=== PATIENT | male | born 1985 | race Caucasian/White ===

== ENCOUNTER 2019-02-22 19:16 | Emergency (ER) | payer MEDICAID ==
[2019-02-22] MEDS ORDERED: Lidocaine 1% 30 ML SDV ONE (19:45)
[2019-02-22] MEDS ORDERED: Lidocaine 2% with EPINEPHrine 1:200,000 20 ML SDV ONE (19:46)
[2019-02-22 20:18] LABS: ANION GAP 13.8; CHLORIDE,CL 101 mmol/L (101-111); SODIUM,NA 136 mmol/L (135-145)
[2019-02-22] MEDS ORDERED: Lidocaine 1% 10 ML MDV INJECT ONE (20:30)
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
== END 2019-02-22 20:55 | disposition home or self-care (01) ==
LOC: DL.ED 19:16
DX: S01.21XA Laceration without foreign body of nose, initial encounter (principal); E66.9 Obesity, unspecified; Z91.09 Other allergy status, other than to drugs and biological substances; Z68.30 Body mass index [BMI] 30.0-30.9, adult; V49.50XA Passenger injured in collision with unspecified motor vehicles in traffic accident, initial encounter; Y92.410 Unspecified street and highway as the place of occurrence of the external cause
CPT/HCPCS: 12015; 36415; 80053; 80320; 85025; 99284; J2001; G0480

== ENCOUNTER 2019-02-28 17:31 | Inpatient (IN) | payer OTHER, MEDICAID ==
[2019-02-28] MEDS ORDERED: Sodium Chloride 0.9% 10 ML Syringe FLUSH PRN (18:27)
[2019-02-28] MEDS ORDERED: Sodium Chloride 0.9% 1,000 ML IV ONE (18:29)
[2019-02-28] MEDS ORDERED: Albuterol/Ipratropium 3.0-0.5 MG/3 ML Neb Soln NEB ONE (18:29)
[2019-02-28] MEDS ORDERED: Ketorolac 30 MG/ML SDV IVPUSH ONE (18:29)
[2019-02-28] MEDS ORDERED: Piperacillin/Tazobactam 4.5 GM in Sodium Chloride 0.9% 100 ML IV ONE (18:30)
[2019-02-28] MEDS ORDERED: Ondansetron 4 MG/2 ML SDV IV ONE (19:03)
[2019-02-28] MEDS ORDERED: HYDROmorphone 1 MG/ML Syringe IVPUSH ONE (19:03)
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
[2019-02-28] MEDS ORDERED: Ondansetron 4 MG Tab.DIS PO PRN (19:10)
[2019-02-28] MEDS ORDERED: Docusate Sodium 100 MG Cap PO PRN (19:10)
[2019-02-28] MEDS ORDERED: Albuterol 0.083% 2.5 MG/3 ML Neb Soln NEB PRN (19:10)
[2019-02-28] MEDS ORDERED: Zolpidem 5 MG Tab PO PRN (19:10)
[2019-02-28] MEDS ORDERED: Acetaminophen/HYDROcodone 325-10 MG Tab PO PRN (19:10)
[2019-02-28 19:14] LABS: ANION GAP 14.7; CHLORIDE,CL 104 mmol/L (101-111); SODIUM,NA 137 mmol/L (135-145)
[2019-02-28] MEDS ORDERED: Azithromycin 500 MG in Sodium Chloride 0.9% 250 ML IV SCH (19:15)
[2019-02-28] MEDS ORDERED: Azithromycin 500 MG Vial ONE (20:06)
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
[2019-02-28] MEDS: Heparin Sodium 5,000 Units/ML Vial SUBCUT SCH (21:38)
[2019-03-01] MEDS: Acetaminophen 325 MG Tab PO PRN ×2 (02:50→23:00)
[2019-03-01] MEDS ORDERED: Piperacillin/Tazobactam 3.375 GM in Sodium Chloride 0.9% 100 ML IV SCH (03:00)
[2019-03-01] MEDS: Heparin Sodium 5,000 Units/ML Vial SUBCUT SCH ×3 (05:34→22:19)
[2019-03-01 06:53] LABS: ANION GAP 12.8; CHLORIDE,CL 106 mmol/L (101-111); SODIUM,NA 139 mmol/L (135-145)
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
[2019-03-01] MEDS: Sodium Chloride 0.9% 10 ML Syringe FLUSH PRN ×4 (14:17→23:09)
[2019-03-01] MEDS: Piperacillin/Tazobactam 3.375 GM in Sodium Chloride 0.9% 100 ML IV SCH ×2 (14:18→22:35)
[2019-03-01] MEDS ORDERED: Albuterol/Ipratropium 3.0-0.5 MG/3 ML Neb Soln NEB PRN (16:43)
[2019-03-01] MEDS ORDERED: Azithromycin 500 MG in Sodium Chloride 0.9% 250 ML IV SCH (21:00)
[2019-03-02] MEDS: Sodium Chloride 0.9% 10 ML Syringe FLUSH PRN (05:42)
[2019-03-02] MEDS: Piperacillin/Tazobactam 3.375 GM in Sodium Chloride 0.9% 100 ML IV SCH (05:43)
[2019-03-02] MEDS: Heparin Sodium 5,000 Units/ML Vial SUBCUT SCH (05:48)
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
[2019-03-02] MEDS ORDERED: Pneumococcal Polyvalent-23 Vaccine 0.5 ML SDV IM ONE (13:13)
[2019-03-02 13:44] VITALS: BP 114/68; PULSE 81
== END 2019-03-02 13:50 | disposition home or self-care (01) | DRG 195 ==
LOC: DL.ED 17:31 → DL.MS 19:11
PROVIDERS: ADMIT Internal Medicine; ATTEND Internal Medicine
DX: J18.1 Lobar pneumonia, unspecified organism (principal); S01.21XA Laceration without foreign body of nose, initial encounter; K59.09 Other constipation; E66.9 Obesity, unspecified; F17.200 Nicotine dependence, unspecified, uncomplicated; Z91.09 Other allergy status, other than to drugs and biological substances; S22.42XD Multiple fractures of ribs, left side, subsequent encounter for fracture with routine healing; S02.401D Maxillary fracture, unspecified side, subsequent encounter for fracture with routine healing; V89.2XXA Person injured in unspecified motor-vehicle accident, traffic, initial encounter
CPT/HCPCS: 36415; 71046; 80048; 80053; 80305-QW; 81001; 83605; 85025; 85027; 87040; 87070; 87205; 94640; 96365; 96375; 99284-25; A9270-GY; G0480; J0456; J1170; J1644; J1885; J2543; J7030; J7050; J7620-GY

== ENCOUNTER 2020-08-26 21:18 | Emergency (ER) | payer MEDICAID, OTHER | END 2020-08-26 21:45 | disposition left against medical advice (07) | LOC: DL.ED 21:18 | DX: Z53.21 Procedure and treatment not carried out due to patient leaving prior to being seen by health care provider (principal) ==

== ENCOUNTER 2020-09-07 15:48 | Emergency (ER) | payer MEDICAID ==
[2020-09-07 16:21] VITALS: BP 115/99; PULSE 84
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
== END 2020-09-07 17:03 | disposition home or self-care (01) ==
LOC: DL.ED 15:48
DX: S01.81XA Laceration without foreign body of other part of head, initial encounter (principal); E66.9 Obesity, unspecified; Z91.048 Other nonmedicinal substance allergy status; Z68.32 Body mass index [BMI] 32.0-32.9, adult; W22.8XXA Striking against or struck by other objects, initial encounter
CPT/HCPCS: 12001; 99282; 99282-25

== ENCOUNTER 2020-09-21 10:58 | Emergency (ER) | payer MEDICAID ==
--- NOTE | 2020-09-21 11:08 | EDM.PDOC ---
ED HPI GENERAL MEDICAL PROBLEM - General Chief Complaint: Wound Recheck Stated Complaint: NEEDS MARIA REMOVED Time Seen by Provider: 09/21/20 11:04 Source of Information: Reports: Patient, Old Records, RN, RN Notes Reviewed History Limitations: Reports: No Limitations - History of Present Illness INITIAL COMMENTS - FREE TEXT/NARRATIVE: Pt presents to ER with request for staple removal from scalp. Pt was seen here on 09/07/20 for a laceration. Denies any wound infection or other concerns. Onset Date: 09/07/20 Location: Reports: Head Severity: Mild Improves with: Reports: None Worsens with: Reports: None Associated Symptoms: Reports: No Other Symptoms - Related Data Allergies Allergy/AdvReac Type Severity Reaction Status Date / Time SEASONAL Allergy Sneezing Uncoded 09/07/20 16:18 Home Meds: Home Meds Bacitracin Zinc/Polymyxin B [Double Antibiotic Ointment] 1 applic TOP BID 02/28/19 [History] Docusate Sodium [Colace] 1 tab PO BID PRN 02/28/19 [History] Hydrocodone/Acetaminophen [Hydrocodone-Acetamin 5-325 mg] 1 tab PO Q6HR PRN 02/28/19 [History] Ibuprofen 800 mg PO QID PRN 02/28/19 [History] Lidocaine 1 patch TRDERM DAILY PRN 02/28/19 [History] Sildenafil [Revatio] 20 mg PO DAILY PRN 02/28/19 [History] cephALEXin [Cephalexin] 500 mg PO QID 02/28/19 [History] oxyCODONE HCl/Acetaminophen [Percocet 10-325 mg Tablet] 1 each PO Q6HR PRN 02/28/19 [History] polyethylene glycoL 3350 [Clearlax] 1 dose PO DAILY 02/28/19 [History] Azithromycin 500 mg PO DAILY 3 Days tablet 03/02/19 [Rx] Past Medical History HEENT History: Reports: Impaired Vision Cardiovascular History: Reports: None Respiratory History: Reports: None Gastrointestinal History: Reports: Chronic Constipation, Other (See Below) Other Gastrointestinal History: INTERMITTENT RECTAL BLEED Genitourinary History: Reports: 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: Musculoskeletal History: Reports: Other (See Below) Other Musculoskeletal History: FEET CLICK Neurological History: Reports: Head Trauma, Other (See Below) Other Neuro History: TRAUMATIC BRAIN INJURY Psychiatric History: Reports: Depression, Other (See Below) Other Psychiatric History: INSOMNIA Endocrine/Metabolic History: Reports: Obesity/BMI 30+ Hematologic History: Reports: None Immunologic History: Reports: None Oncologic (Cancer) History: Reports: None Dermatologic History: Reports: None - Infectious Disease History Infectious Disease History: Reports: Chicken Pox - Past Surgical History Head Surgeries/Procedures: Reports: None HEENT Surgical History: Reports: None Cardiovascular Surgical History: Reports: None Respiratory Surgical History: Reports: None GI Surgical History: Reports: None Male Surgical History: Reports: None Endocrine Surgical History: Reports: None Neurological Surgical History: Reports: None Musculoskeletal Surgical History: Reports: Other (See Below) Other Musculoskeletal Surgeries/Procedures:: 2ND NAIL AUVULSION; HAMMERTOE REPAIR RIGHT FOOT Oncologic Surgical History: Reports: None Dermatological Surgical History: Reports: None Social & Family History - Family History Family Medical History: Unobtainable - Caffeine Use Caffeine Use: Reports: None - Sexual History Sexual History: Reports: Sexually Active - Living Situation & Occupation Living situation: Reports: Other Occupation: Unemployed ED ROS GENERAL - Review of Systems Review Of Systems: Unable To Obtain Reason Not Obtained: Pt left the facility ED EXAM, SKIN/RASH Exam: Not Obtained Reason Not Obtained: Pt left without being seen Course - Orders/Labs/Meds Orders: Active Orders 24 hr Category Date Time Status [place] Suture Removal [OM.PC] Routine Oth 09/21/20 11:08 Ordered - Re-Assessments/Exams Free Text/Narrative Re-Assessment/Exam: 09/21/20 11:06 Scalp maria removed by RN, staple reported to have been stuck in pt's hair, and no longer in the skin. Departure - Departure Time of Disposition: 11:20 Disposition: Left Without Being Seen 07 Condition: Undetermined Clinical Impression: Removal of maria - Discharge Information Forms: ED Department Discharge, Refusal of Medical Screening - My Orders Last 24 Hours: My Active Orders 09/21/20 11:08 Maria Suture Removal [OM.PC] Routine - Assessment/Plan Last 24 Hours: My Active Orders 09/21/20 11:08 Maria Suture Removal [OM.PC] Routine
== END 2020-09-21 11:14 | disposition left against medical advice (07) ==
LOC: DL.ED 10:58
DX: S01.01XD Laceration without foreign body of scalp, subsequent encounter (principal); E66.9 Obesity, unspecified; Z91.048 Other nonmedicinal substance allergy status; Z79.899 Other long term (current) drug therapy; W22.8XXD Striking against or struck by other objects, subsequent encounter
CPT/HCPCS: 99281

== ENCOUNTER 2021-01-15 16:17 | Emergency (ER) | payer MEDICAID ==
--- NOTE | 2021-01-15 16:38 | EDM.PDOC ---
ED HPI GENERAL MEDICAL PROBLEM - General Stated Complaint: SORE THROAT Time Seen by Provider: 01/15/21 16:33 Source of Information: Reports: Patient History Limitations: Reports: No Limitations - History of Present Illness INITIAL COMMENTS - FREE TEXT/NARRATIVE: 35 y/o M c/o cough, sob, R sided neck pn radiating down into his R chest. Symptoms started last night. Has one moderna vaccine. Denies sore throat, abd pn, covid exposure, back pn, extremity pn. Symptoms are worse when pt leans over. Non productive cough. Denies drugs, etoh, trauma. Duration: Hour(s): Location: Reports: Neck Severity: Mild Improves with: Reports: None Worsens with: Reports: Other (leaning forward) - Related Data Allergies Allergy/AdvReac Type Severity Reaction Status Date / Time SEASONAL Allergy Sneezing Uncoded 01/15/21 16:56 Home Meds: Home Meds Bacitracin Zinc/Polymyxin B [Double Antibiotic Ointment] 1 applic TOP BID 02/28/19 [History] Docusate Sodium [Colace] 1 tab PO BID PRN 02/28/19 [History] Hydrocodone/Acetaminophen [HYDROcodone-Acetaminophen 5-325 MG] 1 tab PO Q6HR PRN 02/28/19 [History] Ibuprofen 800 mg PO QID PRN 02/28/19 [History] Lidocaine 1 patch TRDERM DAILY PRN 02/28/19 [History] Sildenafil [Revatio] 20 mg PO DAILY PRN 02/28/19 [History] cephALEXin [Cephalexin] 500 mg PO QID 02/28/19 [History] oxyCODONE HCl/Acetaminophen [Percocet 10-325 mg Tablet] 1 each PO Q6HR PRN 02/28/19 [History] polyethylene glycoL 3350 [Clearlax] 1 dose PO DAILY 02/28/19 [History] Azithromycin 500 mg PO DAILY 3 Days tablet 03/02/19 [Rx] Past Medical History HEENT History: Reports: Impaired Vision Cardiovascular History: Reports: None Respiratory History: Reports: None Gastrointestinal History: Reports: Chronic Constipation, Other (See Below) Other Gastrointestinal History: INTERMITTENT RECTAL BLEED Genitourinary History: Reports: 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: Musculoskeletal History: Reports: Other (See Below) Other Musculoskeletal History: FEET CLICK Neurological History: Reports: Head Trauma, Other (See Below) Other Neuro History: TRAUMATIC BRAIN INJURY Psychiatric History: Reports: Depression, Other (See Below) Other Psychiatric History: INSOMNIA Endocrine/Metabolic History: Reports: Obesity/BMI 30+ Hematologic History: Reports: None Immunologic History: Reports: None Oncologic (Cancer) History: Reports: None Dermatologic History: Reports: None - Infectious Disease History Infectious Disease History: Reports: Chicken Pox - Past Surgical History Head Surgeries/Procedures: Reports: None HEENT Surgical History: Reports: None Cardiovascular Surgical History: Reports: None Respiratory Surgical History: Reports: None GI Surgical History: Reports: None Male Surgical History: Reports: None Endocrine Surgical History: Reports: None Neurological Surgical History: Reports: None Musculoskeletal Surgical History: Reports: Other (See Below) Other Musculoskeletal Surgeries/Procedures:: 2ND NAIL AUVULSION; HAMMERTOE REPAIR RIGHT FOOT Oncologic Surgical History: Reports: None Dermatological Surgical History: Reports: None Social & Family History - Family History Family Medical History: Unobtainable - Caffeine Use Caffeine Use: Reports: None - Sexual History Sexual History: Reports: Sexually Active - Living Situation & Occupation Living situation: Reports: Other Occupation: Unemployed ED ROS ENT - Review of Systems Review Of Systems: Comprehensive ROS is negative, except as noted in HPI. ED EXAM, ENT - Physical Exam Exam: See Below Exam Limited By: No Limitations General Appearance: Alert, No Apparent Distress Eye Exam: Bilateral Eye: PERRL Ears: Normal External Exam, Normal Canal, Hearing Grossly Normal, Normal TMs Nose: Normal Inspection, Normal Mucousa, No Blood Mouth/Throat: Normal Inspection, Normal Gums, Normal Lips, Normal Oropharynx, Normal Teeth Head: Atraumatic, Normocephalic Neck: Supple, Lymphadenopathy (L), Lymphadenopathy (R) Respiratory/Chest: Other (course breath sounds) Cardiovascular: Normal Peripheral Pulses, Regular Rate, Rhythm, No Edema, No Gallop, No JVD, No Murmur, No Rub GI/Abdominal: Soft, Non-Tender (Male) Exam: Deferred Rectal (Males) Exam: Deferred Back: Normal Inspection, Full Range of Motion Extremities: Normal Inspection, Normal Range of Motion, Non-Tender, No Pedal Edema, Normal Capillary Refill Neurological: Alert, Oriented Skin: Warm, Dry, Intact, Normal Color, No Rash Course - Vital Signs Last Recorded V/S: Last Vital Signs Temp 98.1 F 01/15/21 16:59 Pulse 88 09/28/21 16:59 Resp 18 01/15/21 16:59 BP 124/100 H 01/15/21 16:59 Pulse Ox 98 01/15/21 16:59 - Orders/Labs/Meds Orders: Active Orders 24 hr Category Date Time Status CULTURE STREP A CONFIRMATION [RM] Stat Lab 01/15/21 16:36 Results STREP SCRN A RAPID W CULT CONF [RM] Stat Lab 01/15/21 16:36 Results Labs: Laboratory Tests 01/15/21 Range/Units 16:34 SARS CoV-2 RNA Rapid АННА Negative (NEGATIVE) - Re-Assessments/Exams Free Text/Narrative Re-Assessment/Exam: 01/15/21 17:18 Pt does not want further work up and would like to sign out ama. I explained the risks of signing out ama and not having a full evaluation could result in serious injury or . THe pt understood the risks and still wanted to sign out ama. Departure - Departure Time of Disposition: 17:19 Disposition: Against Medical Advice 07 Condition: Good Clinical Impression: Left against medical advice - Discharge Information *PRESCRIPTION DRUG MONITORING PROGRAM REVIEWED*: Not Applicable *COPY OF PRESCRIPTION DRUG MONITORING REPORT IN PATIENT JOCELIN: Not Applicable Sepsis Event Note (ED) - Focused Exam Vital Signs: Vital Signs Temp Pulse Resp BP Pulse Ox 01/15/21 16:59 98.1 F 88 18 124/100 H 98
[2021-01-15 17:05] VITALS: BP 124/100; PULSE 88
== END 2021-01-15 17:22 | disposition left against medical advice (07) ==
LOC: DL.ED 16:17
DX: R05 Cough (principal); Z53.8 Procedure and treatment not carried out for other reasons; E66.9 Obesity, unspecified; Z68.32 Body mass index [BMI] 32.0-32.9, adult; Z20.822 Contact with and (suspected) exposure to COVID-19; Z91.09 Other allergy status, other than to drugs and biological substances
CPT/HCPCS: 87081; 87430; 99283; U0002

== ENCOUNTER 2021-05-05 16:11 | Emergency (ER) | payer MEDICAID ==
[2021-05-05 17:40] LABS: CORONAVIRUS COVID-19 NAA NEGATIVE (NEGATIVE)
[2021-05-05 17:45] VITALS: BP 144/93; PULSE 100
== END 2021-05-05 17:48 | disposition left against medical advice (07) ==
LOC: DL.ED 16:11
DX: Z53.21 Procedure and treatment not carried out due to patient leaving prior to being seen by health care provider (principal); Z20.822 Contact with and (suspected) exposure to COVID-19
CPT/HCPCS: 0240U

== ENCOUNTER 2021-07-30 20:24 | Emergency (ER) | payer MEDICAID ==
[2021-07-30] MEDS ORDERED: Oseltamivir 75 MG Cap PO ONE (20:25)
[2021-07-30 20:57] VITALS: BP 115/84; PULSE 99
[2021-07-30 21:20] LABS: AMPHETAMINES,URINE NEGATIVE (NEGATIVE); BARBITURATES,URINE NEGATIVE (NEGATIVE); BENZODIAZEPINE,URINE NEGATIVE (NEGATIVE); MDMA (ECSTASY), URINE NEGATIVE (NEGATIVE); METHADONE,URINE NEGATIVE (NEGATIVE); METHAMPHETAMINES,URINE NEGATIVE (NEGATIVE); OPIATES,URINE NEGATIVE (NEGATIVE); OXYCODONE,URINE NEGATIVE (NEGATIVE); PHENCYCLIDINE,URINE NEGATIVE (NEGATIVE); TCA,URINE NEGATIVE (NEGATIVE)
[2021-07-30 21:34] LABS: CORONAVIRUS COVID-19 NAA NEGATIVE (NEGATIVE)
[2021-07-30 21:34] LABS: ANION GAP 17.2 mEq/L (7-13); CHLORIDE,CL 102 mmol/L (98-107); SODIUM,NA 139 mmol/L (136-145)
[2021-07-30] MEDS ORDERED: Acetaminophen 325 MG Tab PO ONE (21:51)
[2021-07-30] MEDS ORDERED: Oseltamivir 75 MG Cap ONE (21:55)
== END 2021-07-30 22:07 | disposition home or self-care (01) ==
LOC: DL.ED 20:24
DX: J10.1 Influenza due to other identified influenza virus with other respiratory manifestations (principal); F17.210 Nicotine dependence, cigarettes, uncomplicated; Z20.822 Contact with and (suspected) exposure to COVID-19; Z91.048 Other nonmedicinal substance allergy status
CPT/HCPCS: 0240U; 36415; 80053; 80305-QW; 81001; 85025; 99283; 99284; A9270-GY

== ENCOUNTER 2022-05-11 11:21 | Emergency (ER) | payer MEDICARE, MEDICAID ==
[2022-05-11 12:11] VITALS: BP 130/95; PULSE 97
[2022-05-11 12:31] LABS: RESPIRATORY SYNCYTIAL VIR NAA NEGATIVE (NEGATIVE)
[2022-05-11 12:35] LABS: CORONAVIRUS COVID-19 NAA POSITIVE (NEGATIVE)
== END 2022-05-11 12:46 | disposition home or self-care (01) ==
LOC: DL.ED 11:21
DX: U07.1 COVID-19 (principal); F17.210 Nicotine dependence, cigarettes, uncomplicated; Z91.09 Other allergy status, other than to drugs and biological substances
CPT/HCPCS: 0241U; 99283

== ENCOUNTER 2023-08-14 19:17 | Emergency (ER) | payer MEDICARE, MEDICAID ==
[2023-08-14] MEDS: Lidocaine 1% 5 ML VIAL ONE (19:33)
[2023-08-14] MEDS: Lidocaine 1% 5 ML VIAL INJECT ONE (19:50)
[2023-08-14 19:56] VITALS: BP 109/82; PULSE 112
[2023-08-14] MEDS: Amoxicillin/Clavulanate K 875-125 MG Tab PO ONE (20:47)
[2023-08-14] MEDS: Doxycycline Monohydrate 100 MG Cap PO ONE (20:47)
== END 2023-08-14 20:51 | disposition home or self-care (01) ==
LOC: DL.ED 19:17
DX: S60.351A Superficial foreign body of right thumb, initial encounter (principal); L03.011 Cellulitis of right finger; E66.9 Obesity, unspecified; Z68.34 Body mass index [BMI] 34.0-34.9, adult; F17.210 Nicotine dependence, cigarettes, uncomplicated; Z91.09 Other allergy status, other than to drugs and biological substances; W45.8XXA Other foreign body or object entering through skin, initial encounter
CPT/HCPCS: 10060; 99282; 99283-25; A9270-GY; J3490

== ENCOUNTER 2024-08-08 03:19 | Emergency (ER) | payer MEDICAID, MEDICARE ==
[2024-08-08 03:55] VITALS: BP 147/100; PULSE 95
== END 2024-08-08 04:26 | disposition left against medical advice (07) ==
LOC: DL.ED 03:19
DX: L40.9 Psoriasis, unspecified (principal); E66.9 Obesity, unspecified; Z68.33 Body mass index [BMI] 33.0-33.9, adult; Z91.048 Other nonmedicinal substance allergy status
CPT/HCPCS: 99282

== ENCOUNTER 2024-12-07 13:58 | Emergency (ER) | payer MEDICARE, OTHER ==
[2024-12-07 14:32] LABS: BASOPHILS PERCENT AUTO 0.6 % (0.0-1.0); EOSINOPHILS PERCENT AUTO 1.2 % (1.0-3.0); LYMPHOCYTES PERCENT AUTO 16.2 % (20.5-50.1); MONOCYTES PERCENT AUTO 7.4 % (2-8); NEUTROPHILS PERCENT AUTO 74.6 % (42.2-75.2); PLATELET COUNT,PLT 240 10^3/uL (150-450); RED BLOOD CELL COUNT 5.11 10^6/uL (4.6-6.2); WHITE BLOOD CELL COUNT,WBC 10.4 10^3/uL (5.0-10.0)
[2024-12-07 14:52] LABS: A/G RATIO 1.2; ALANINE AMINOTRANSFERASE,ALT 28 U/L (16-63); ASPARTATE AMNIOTRANSFERASE,AST 16 U/L (15-37); BILIRUBIN TOTAL 0.5 mg/dL (0.2-1.0); BLOOD UREA NITROGEN,BUN 16 mg/dL (7-18); CARBON DIOXIDE,CO2 27 mmol/L (21-32); CHLORIDE,CL 105 mmol/L (98-107); CREATININE 0.92 mg/dL (0.70-1.30); EST CRCL DRUG DOSING (CG) 109.10 mL/min; GLUCOSE RANDOM 101 mg/dL (70-99); POTASSIUM,K 4.3 mmol/L (3.5-5.1); PROTEIN TOTAL,TP 7.7 g/dL (6.4-8.2); SODIUM,NA 141 mmol/L (136-145)
[2024-12-07 14:54] LABS: ESTIMATED GFR 107 mL/min (>=60)
[2024-12-07] MEDS: Lactated Ringers 1,000 ML IV SCH (15:45)
[2024-12-07 15:50] LABS: AMPHETAMINES,URINE NEGATIVE (NEGATIVE); BARBITURATES,URINE NEGATIVE (NEGATIVE); MDMA (ECSTASY), URINE NEGATIVE (NEGATIVE); METHAMPHETAMINES,URINE NEGATIVE (NEGATIVE); OPIATES,URINE NEGATIVE (NEGATIVE); OXYCODONE,URINE NEGATIVE (NEGATIVE); PHENCYCLIDINE,URINE NEGATIVE (NEGATIVE); TCA,URINE NEGATIVE (NEGATIVE)
[2024-12-07 15:56] VITALS: BP 98/64; PULSE 54
[2024-12-09 11:48] LABS: C.TRACHOMATIS BY TMA Negative (Negative); N.GONORRHOEAE BY TMA Negative (Negative)
== END 2024-12-07 16:55 | disposition home or self-care (01) ==
LOC: DL.ED 13:58
DX: E86.0 Dehydration (principal); Z91.09 Other allergy status, other than to drugs and biological substances
CPT/HCPCS: 36415; 80053; 80305; 83690; 83735; 84484; 85025; 86592; 87389; 87491; 87591; 93005; 93010; 96360; 99284; J7120